=== PATIENT | male | born 1975 | race Native Hawaiian/Other Pacific Islander ===

== ENCOUNTER 2018-04-27 19:36 | Observation (INO) | payer OTHER ==
[~2018-04-27] VITALS: Ht 162.6 cm; Wt 70.9 kg
[2018-04-27 19:56] VITALS: BP 191/93; TEMP 100.8
[2018-04-27 21:38] LABS: PLATELET COUNT 272 K/uL (142-355)
[2018-04-28] VITALS (7 sets, daily range): BP systolic 116–152; BP diastolic 84–98; TEMP 98.5–99.8; Ht 162.6 cm; Wt 70.9 kg
[2018-04-28 08:59] LABS: PLATELET COUNT 252 K/uL (142-355)
[2018-04-29 04:00] VITALS: BP 149/86; TEMP 99.9
[2018-04-29 08:00] VITALS: BP 149/94; TEMP 97.6
[2018-04-29 09:22] LABS: PLATELET COUNT 267 K/uL (142-355)
[2018-04-29] MEDS ORDERED: AMOX875T8 PO (09:46)
== END 2018-04-29 11:15 | disposition home or self-care (01) ==
LOC: ED 19:36 → MED/SURG 04-28 01:10
PROVIDERS: Emergency Medicine; ADMIT Internal Medicine
DX: K04.7 Periapical abscess without sinus (principal); K12.2 Cellulitis and abscess of mouth; R03.0 Elevated blood-pressure reading, without diagnosis of hypertension
CPT/HCPCS: 36415; 80053; 85027; 87040; 93005; 96365; 96367; 96374; 99220; 99284; G0378; J1885; J2543

== ENCOUNTER 2018-04-27 22:20 | Outpatient (CLI) | payer OTHER | END 2018-04-27 22:39 | disposition short-term general hospital (02) | LOC: AMB 22:20 | DX: K12.2 Cellulitis and abscess of mouth (principal); D72.829 Elevated white blood cell count, unspecified; K02.9 Dental caries, unspecified | CPT/HCPCS: A0425; A0426 ==

== ENCOUNTER 2020-05-19 10:54 | Emergency (ER) | payer OTHER ==
[~2020-05-19] VITALS: Ht 162.6 cm; Wt 68.9 kg
[~2020-05-19 10:54] MED LIST: AMOX875T8 PO
[2020-05-19 12:18] LABS: PLATELET COUNT 180 K/uL (142-355)
[2020-05-19 12:29] LABS: POTASSIUM 4.4 mmol/L (3.6-5.2)
[2020-05-19 13:51] LABS: POTASSIUM 4.4 mmol/L (3.6-5.2)
[2020-05-19 15:15] VITALS: BP 149/90; TEMP 97.8
== END 2020-05-19 15:15 | disposition short-term general hospital (02) ==
LOC: ED 10:54 → EDBD 10:54 → ED 15:15
PROVIDERS: Emergency Medicine Emergency Medical Services
DX: K85.80 Other acute pancreatitis without necrosis or infection (principal); E11.10 Type 2 diabetes mellitus with ketoacidosis without coma; Z03.818 Encounter for observation for suspected exposure to other biological agents ruled out
CPT/HCPCS: 36415; 36600; 80048; 80053; 80307; 80320; 81000; 81002; 82150; 82805; 82948; 83605; 83690; 84100; 84443; 84484; 85027; 87635; 93005; 96360; 96361; 96365; 96374; 96375; 99284; J1815; J1885; J2405; J3490; Q9963; U0003

== ENCOUNTER 2020-07-27 07:45 | Outpatient (CLI) | payer OTHER | END 2020-07-27 22:42 | disposition home or self-care (01) | LOC: CT 07:45 | PROVIDERS: ATTEND Nurse Practitioner Family | DX: R93.89 Abnormal findings on diagnostic imaging of other specified body structures (principal) ==

== ENCOUNTER 2020-12-27 08:43 | Outpatient (CLI) | payer OTHER | END 2020-12-27 20:00 | disposition home or self-care (01) | LOC: CT 08:43 | PROVIDERS: ATTEND Internal Medicine Gastroenterology | DX: K86.3 Pseudocyst of pancreas (principal) | CPT/HCPCS: 36415; 82565; 84520; Q9963 ==

== ENCOUNTER 2021-10-18 15:29 | Emergency (ER) | payer OTHER ==
[~2021-10-18] VITALS: Ht 162.6 cm; Wt 58.1 kg
[2021-10-18 15:50] VITALS: TEMP 96.9
[2021-10-18] MEDS ORDERED: LORA1TAB17 PO (18:54)
[2021-10-18] MEDS ORDERED: HYDR25TA60 PO (18:54)
[2021-10-18 19:45] VITALS: BP 154/74
== END 2021-10-18 19:46 | disposition home or self-care (01) ==
LOC: ED 15:29
DX: I10 Essential (primary) hypertension (principal); F41.8 Other specified anxiety disorders
CPT/HCPCS: 99283